=== PATIENT | female | born 1975 | race Caucasian/White ===

== ENCOUNTER 2016-11-25 09:57 | Day surgery (SDC) | payer OTHER ==
[~2016-11-25 09:57] MED LIST: Lactated Ringers 1,000 ML IV SCH
[2016-11-25] MEDS ORDERED: fentaNYL 100 MCG/2 ML SDV ONE (11:28)
[2016-11-25] MEDS ORDERED: Midazolam 1 MG/ML 2 ML SDV ONE (11:29)
[2016-11-25] MEDS ORDERED: Propofol 200 MG/20 ML SDV ONE (11:29)
[2016-11-25] MEDS ORDERED: Bupivacaine 0.5%/EPINEPHrine 1:200,000 30 ML SDV ONE (12:03)
[2016-11-25] MEDS ORDERED: Bupivacaine 0.5%/EPINEPHrine 1:200,000 30 ML SDV INFILT ONE (12:33)
[2016-11-25] MEDS ORDERED: Acetaminophen/HYDROcodone 325-5 MG Tab PO PRN (13:06)
[2016-11-25 14:08] VITALS: BP 111/76
--- NOTE | 2016-12-02 17:29 | OR ---
PREOPERATIVE DIAGNOSIS: Left axillary mass. POSTOPERATIVE DIAGNOSIS: Left axillary mass. PROCEDURE PERFORMED: Excision of left axillary mass. INDICATION: The patient was seen in the clinic with a painful left axillary mass. Presents for excision at this time. DESCRIPTION OF PROCEDURE: The patient was brought to the operating room. General anesthesia was administered per Anesthesia. The left axilla was prepped and draped in a sterile manner. A 15 blade was used to make an elliptical incision over the mass taking out some of the overlying skin. Cautery was used to go through the subcutaneous tissue. The mass was removed in its entirety. The incision was closed in layers with 3-0 Vicryl interrupted sutures and a 4-0 running subcuticular suture and Dermabond. Dressing was applied. Pathology pending. BKD: 12/02/2016 12:54:47 MODL: 12/02/2016 17:20:12 /[id number]
== END 2016-11-25 14:35 | disposition home or self-care (01) ==
LOC: VM.SDS 09:57
PROVIDERS: ATTEND Surgery
DX: D17.22 Benign lipomatous neoplasm of skin and subcutaneous tissue of left arm (principal); Z88.8 Allergy status to other drugs, medicaments and biological substances; Z98.890 Other specified postprocedural states
CPT/HCPCS: 11404; 12032; A9270; J2250; J2704; J3010; J7120

== ENCOUNTER 2016-12-14 14:00 | Emergency (ER) | payer OTHER ==
--- NOTE | 2016-12-14 14:44 | EDM.PDOC ---
ED HPI Trauma - General Chief Complaint: Upper Extremity Injury/Pain Stated Complaint: ring stuck on finger Time Seen by Provider: 12/14/16 14:19 Source: Reports: Patient, Family, RN, RN notes reviewed History Limitations: Reports: No limitations - History of Present Illness INITIAL COMMENTS - FREE TEXT/NARRATIVE: Patient presents to the emergency room at [facility] with a ring stuck on her fourth digit left hand. The patient states that she has had progressive swelling of that finger since she had surgery to the left upper extremity about 3 weeks ago. The patient states that she is unable to remove her ring she has tried several modalities at home without any success. 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: Neurological History: Reports: Migraines Endocrine/Metabolic History: Reports: Hypoparathyroidism Oncologic (Cancer) History: Reports: None Dermatologic History: Reports: None - Past Surgical History Head Surgeries/Procedures: Reports: None HEENT Surgical History: Reports: Other (see below) Other HEENT Surgeries/Procedures: Sinus surgery GI Surgical History: Reports: Colonoscopy Other Female Surgeries/Procedures: family history of breast cancer Social & Family History - Family History Oncologic: Reports: Breast - Tobacco Use Smoking Status *Q: Unknown Ever Smoked - Recreational Drug Use Recreational Drug Use: No Drug Use in Last 12 Months: No Review of Systems - Review of Systems Review Of Systems: See Below Constitutional: Denies: chills, fever, weakness Respiratory: Denies: Shortness of Breath, Cough Cardiovascular: Denies: chest pain, palpitations Musculoskeletal: Reports: other (Ring stuck to ring finger left hand) Skin: Reports: no symptoms Neurological: Reports: No Symptoms Trauma Exam - Physical Exam Exam: See Below Exam Limited By: No limitations General Appearance: Reports: alert, no apparent distress Respiratory Exam: Reports: no respiratory distress, lungs clear, normal breath sounds Cardiovascular: Reports: regular rate, rhythm Extremities: Reports: other (4th digit left hand swollen; unable to move ring) Neurologic: Reports: alert, oriented x 3 ED TRAUMA EXTREMITY PROCEDURES - Additional/Other Procedure(s) Other (Free Text) Procedure(s): Electric ring cutter used to remove ring from 4th digit left hand Course - Vital Signs Last Recorded V/S: Last Vital Signs Temp 36.4 C 12/14/16 14:15 Pulse 66 12/14/16 14:15 Resp 14 12/14/16 14:15 BP 129/80 12/14/16 14:15 Pulse Ox 97 12/14/16 14:15 Departure - Departure Time of Disposition: 14:42 Disposition: Home, Self-Care 01 Condition: good Clinical Impression: Finger swelling Referrals: Dahiana Lewis DO [Primary Care Provider] - Forms: ED Department Discharge Additional Instructions: 1. Follow up with your Primary as symptoms warrant
== END 2016-12-14 14:46 | disposition home or self-care (01) ==
LOC: VM.ED 14:00
CPT/HCPCS: 99283